=== PATIENT | female | born 1970 | race African-American/Black ===

== ENCOUNTER 2018-12-06 09:37 | Outpatient (CLI) | payer OTHER ==
--- NOTE | 2018-12-06 15:28 | MMO ---
Bilateral MAMMO Bilat Screen [facility]. CLINICAL HISTORY: Patient is 48 years old and is seen for screening. The patient has the following family history of breast cancer: paternal aunt. The patient has no personal history of cancer. VIEWS: The views performed were: bilateral craniocaudal; bilateral craniocaudal with tomosynthesis; bilateral mediolateral oblique; and bilateral mediolateral oblique with tomosynthesis. FILMS COMPARED: The present examination has been compared to a prior imaging study performed at MAMMOGRAM FINDINGS: There are scattered fibroglandular densities. There are no suspicious masses, suspicious calcifications, or new areas of architectural distortion. IMPRESSION: THERE IS NO MAMMOGRAPHIC EVIDENCE OF MALIGNANCY. A ROUTINE FOLLOW-UP MAMMOGRAM IN 1 YEAR IS RECOMMENDED. THE RESULTS OF THIS EXAM WERE SENT TO THE PATIENT. ACR BI-RADS Category 1 - Negative MAMMOGRAPHY NOTE: 1. A negative mammogram report should not delay a biopsy if a dominant of clinically suspicious mass is present. 2. Approximately 10% to 15% of breast cancers are not detected by mammography. 3. Adenosis and dense breasts may obscure an underlying neoplasm. Reported by: TISH HAWKINS MD Electonically Signed: [id number]
== END 2018-12-06 09:38 | disposition home or self-care (01) ==
LOC: BICMAMMO 09:37
PROVIDERS: ATTEND Family Medicine
DX: Z12.31 Encounter for screening mammogram for malignant neoplasm of breast (principal); Z80.3 Family history of malignant neoplasm of breast
CPT/HCPCS: 77063; 77067

== ENCOUNTER 2018-12-22 12:06 | Outpatient (CLI) | payer OTHER ==
--- NOTE | 2018-12-22 13:37 | RAD ---
LEFT KNEE 4 VIEWS: Date: 12/22/18 HISTORY: Knee pain. FINDINGS: There are mild degenerative changes with spurring from the condyles and tibial spines. Minimal spurri ng from the patella. No joint effusion. No acute fracture. IMPRESSION: Mild degenerative changes as described. POS: [facility]
== END 2018-12-22 12:07 | disposition home or self-care (01) ==
LOC: BICRAD 12:06
PROVIDERS: ATTEND Family Medicine
DX: M25.562 Pain in left knee (principal); M17.12 Unilateral primary osteoarthritis, left knee

== ENCOUNTER 2020-10-09 09:31 | Outpatient (CLI) | payer OTHER | END 2020-10-09 09:32 | disposition home or self-care (01) | LOC: BICRAD 09:31 | PROVIDERS: ATTEND Family Medicine | DX: M25.511 Pain in right shoulder (principal); M25.512 Pain in left shoulder; M25.521 Pain in right elbow; M25.522 Pain in left elbow; M19.011 Primary osteoarthritis, right shoulder; M77.11 Lateral epicondylitis, right elbow; M77.01 Medial epicondylitis, right elbow; M19.012 Primary osteoarthritis, left shoulder; M77.8 Other enthesopathies, not elsewhere classified ==

== ENCOUNTER 2020-10-14 10:50 | Outpatient (CLI) | payer OTHER | END 2020-10-14 10:51 | disposition home or self-care (01) | LOC: BICMAMMO 10:50 | PROVIDERS: ATTEND Family Medicine | DX: Z12.31 Encounter for screening mammogram for malignant neoplasm of breast (principal); Z80.3 Family history of malignant neoplasm of breast | CPT/HCPCS: 77063; 77067 ==

== ENCOUNTER 2020-12-09 11:31 | Outpatient (CLI) | payer OTHER | END 2020-12-09 11:32 | disposition home or self-care (01) | LOC: BICRAD 11:31 | PROVIDERS: ATTEND Nurse Practitioner Family | DX: M54.5 Low back pain (principal); M43.06 Spondylolysis, lumbar region | CPT/HCPCS: 72110 ==

== ENCOUNTER 2022-08-13 08:31 | Outpatient (CLI) | payer OTHER | END 2022-08-13 08:32 | disposition home or self-care (01) | LOC: BICMAMMO 08:31 | PROVIDERS: ATTEND Family Medicine | DX: Z12.31 Encounter for screening mammogram for malignant neoplasm of breast (principal); Z80.3 Family history of malignant neoplasm of breast | CPT/HCPCS: 77063; 77067 ==